=== PATIENT | male | born 1935 | race Two or more races ===

== ENCOUNTER 2017-04-25 20:49 | Inpatient (IN) | payer MEDICARE ==
[~2017-04-25] VITALS: Ht 188 cm; Wt 119.6 kg
[~2017-04-25 20:49] MED LIST: ACET500 PO; ALLO100 PO; ALLOPURINOL; ALLOPURINOL PO; ASPI325; ASPI325 PO; ATEN100; CHOL10002 PO; CLOP75 PO; FURO100EL PO; FURO80 PO; GLUC500 PO; GLUCOSAMINE PO; HCTZ; HYDCHL25 PO; ISOMON30 PO; METF500 PO; METO50 PO; MULVITB&C PO; NITR.4SL SL; OMEG1CAP30 PO; OMEP20ER PO; PANT40 PO; POTA10T PO; SIMV40 PO; VALS80; VALS80 PO; ZANTAC; ZETIA; [UNRECOGNIZED DRUG - OTHER] PO
[2017-04-25 21:03] LABS: BASOPHILS ABSOLUTE AUTO 0.05 K/mm3 (0.00-0.23); BASOPHILS PERCENT AUTO 1 % (0-2); EOSINOPHILS ABSOLUTE AUTO 0.46 K/mm3 (0.00-0.68); EOSINOPHILS PERCENT AUTO 7 % (0-6); Hematocrit 32.7 % (37.0-53.0); Hemoglobin 10.6 g/dL (13.5-17.5); IMMATURE GRAN ABSOLUTE AUTO 0.04 K/mm3 (0.00-0.10); IMMATURE GRAN PERCENT AUTO 1 % (0-1); LYMPHOCYTES ABSOLUTE AUTO 1.84 K/mm3 (0.84-5.20); LYMPHOCYTES PERCENT AUTO 28 % (21-46); MONOCYTES ABSOLUTE AUTO 0.61 K/mm3 (0.16-1.47); MONOCYTES PERCENT AUTO 9 % (4-13); Mean Corpuscular HGB 31.5 pg (26.0-34.0); Mean Corpuscular HGB Conc 32.4 g/dL (31.5-36.5); Mean Corpuscular Volume 97 fL (80-100); Mean Platelet Volume 9.9 fL (9.1-12.4); NEUTROPHILS ABSOLUTE AUTO 3.65 K/mm3 (1.96-9.15); NEUTROPHILS PERCENT AUTO 55 % (41-73); Platelet Count 172 K/mm3 (150-400); RDW Coefficient Variation 13.3 % (11.7-14.2); RDW Standard Deviation 48.1 fL (35.1-46.3); Red Blood Cell Count 3.37 M/mm3 (4.30-5.90); White Blood Cell Count 6.65 K/mm3 (4.00-11.30)
[2017-04-25 21:22] LABS: Albumin, Blood 3.5 g/dL (3.4-5.0); Bilirubin, Total 0.3 mg/dL (0.1-1.0); Bun/Creatinine Ratio 26.8 (12.0-20.0); Creatinine, Blood 1.98 mg/dL (0.60-1.20); Globulin, Blood 3.4 g/dL (2.2-4.0); Potassium, Blood 4.4 mmol/L (3.5-5.5); Total Protein, Blood 6.9 g/dL (6.4-8.2); Troponin I 0.112 ng/mL (0.000-0.040)
[2017-04-25] MEDS ORDERED: CALC.25 PO (21:22)
[2017-04-25] MEDS ORDERED: FURO40 PO (21:23)
[2017-04-25] MEDS ORDERED: SODBIC650 PO (21:25)
[2017-04-25] MEDS ORDERED: Pravachol20 MG PO (21:25)
[2017-04-25] MEDS ORDERED: Co Q-10100 MG PO (21:25)
[2017-04-25] MEDS ORDERED: AMLO5 PO (21:26)
[2017-04-25] MEDS ORDERED: Diovan320 MG PO (21:27)
[2017-04-25] MEDS ORDERED: CLOP75 PO (21:27)
[2017-04-25 23:22] LABS: International Normalized Ratio 1.04; Prothrombin Time Results 10.8 Sec (9.7-11.5)
[2017-04-26] MEDS ORDERED: ALLO100 PO (02:26)
[2017-04-26] MEDS ORDERED: ISOD40ER PO (02:28)
[2017-04-26] MEDS ORDERED: NITR.4SL SL (02:30)
[2017-04-26] MEDS ORDERED: FENO48 PO (02:30)
[2017-04-26] MEDS ORDERED: DOCU100 (02:31)
[2017-04-27 21:22] LABS: Mean Platelet Volume 9.9 fL (9.1-12.4); Platelet Count 173 K/mm3 (150-400)
== END 2017-04-28 16:10 | disposition short-term general hospital (02) | DRG 281 ==
LOC: ER 20:49 → PCU 20:50
PROVIDERS: Emergency Medicine; Family Medicine
PROC: 3E0234Z Introduction of Serum, Toxoid and Vaccine into Muscle, Percutaneous Approach (ICD-10-PCS; principal; 2017-04-26)
DX: I21.4 Non-ST elevation (NSTEMI) myocardial infarction (principal); I50.32 Chronic diastolic (congestive) heart failure; E11.22 Type 2 diabetes mellitus with diabetic chronic kidney disease; N18.4 Chronic kidney disease, stage 4 (severe); I13.0 Hypertensive heart and chronic kidney disease with heart failure and stage 1 through stage 4 chronic kidney disease, or unspecified chronic kidney disease; E66.01 Morbid (severe) obesity due to excess calories; D63.1 Anemia in chronic kidney disease; E78.5 Hyperlipidemia, unspecified; I35.0 Nonrheumatic aortic (valve) stenosis; Z23 Encounter for immunization; G47.33 Obstructive sleep apnea (adult) (pediatric); M10.9 Gout, unspecified; Z66 Do not resuscitate; I25.110 Atherosclerotic heart disease of native coronary artery with unstable angina pectoris; Z68.33 Body mass index [BMI] 33.0-33.9, adult
CPT/HCPCS: 36415; 71046; 80053; 82947; 84484; 85025; 85049; 85610; 85730; 93005; 93010; 94660; 94762; 96374; 96376; 99285; G0378; J1644; J7040

== ENCOUNTER 2017-05-30 14:45 | Inpatient (IN) | payer MEDICARE ==
[~2017-05-30] VITALS: Ht 188 cm; Wt 123.5 kg
[~2017-05-30 14:45] MED LIST changes: +AMLO5 PO; +CALC.25 PO; +Co Q-10100 MG PO; +DOCU100; +Diovan320 MG PO; +FENO48 PO; +FURO40 PO; +ISOD40ER PO; +Pravachol20 MG PO; +SODBIC650 PO
[2017-05-30 15:00] LABS: Calcium, Ionized (POC) 1.34 mmol/L (1.10-1.46); Chloride (POC) 100 mmol/L (98-108); Creatinine (POC) 1.7 mg/dL (0.8-1.3); Glucose (ISTAT POC) 315 mg/dL (70-99); Hemoglobin (POC) 11.2 g/dL (13.5-17.5); Potassium (POC) 3.9 mmol/L (3.5-5.5); Sodium (POC) 134 mmol/L (135-148); Total CO2 (POC) 20 mmol/L (21-32)
[2017-05-30 15:04] LABS: BASOPHILS ABSOLUTE AUTO 0.08 K/mm3 (0.00-0.23); BASOPHILS PERCENT AUTO 1 % (0-2); EOSINOPHILS ABSOLUTE AUTO 1.06 K/mm3 (0.00-0.68); EOSINOPHILS PERCENT AUTO 10 % (0-6); Hematocrit 34.9 % (37.0-53.0); Hemoglobin 10.7 g/dL (13.5-17.5); IMMATURE GRAN PERCENT AUTO 5 % (0-1); LYMPHOCYTES ABSOLUTE AUTO 6.58 K/mm3 (0.84-5.20); LYMPHOCYTES PERCENT AUTO 60 % (21-46); MONOCYTES ABSOLUTE AUTO 0.58 K/mm3 (0.16-1.47); MONOCYTES PERCENT AUTO 5 % (4-13); Mean Corpuscular HGB Conc 30.7 g/dL (31.5-36.5); Mean Corpuscular Volume 101 fL (80-100); Mean Platelet Volume 10.3 fL (9.1-12.4); NEUTROPHILS ABSOLUTE AUTO 2.22 K/mm3 (1.96-9.15); NEUTROPHILS PERCENT AUTO 20 % (41-73); NRBC ABSOLUTE 0.03 K/mm3 (0.00-0.02); NRBC Auto 0.3 /100 WBC (0.0-0.2); Platelet Count 142 K/mm3 (150-400); RDW Coefficient Variation 13.3 % (11.7-14.2); RDW Standard Deviation 49.3 fL (35.1-46.3); Red Blood Cell Count 3.45 M/mm3 (4.30-5.90); White Blood Cell Count 11.02 K/mm3 (4.00-11.30)
[2017-05-30 15:08] LABS: Base Excess Venous -19.1 mmol/L; Bicarbonate Venous 10.3 mmol/L (24.0-30.0); PCO2 Venous 81.8 mmHg (38-42); PO2 Venous 152 mmHg (38-42)
[2017-05-30 15:09] LABS: pH Blood Venous 6.86 (7.34-7.37)
[2017-05-30 15:29] LABS: Albumin, Blood 3.1 g/dL (3.4-5.0); Albumin/Globulin Ratio 0.8 (0.8-1.8); Bilirubin, Total 0.3 mg/dL (0.1-1.0); Bun/Creatinine Ratio 28.1 (12.0-20.0); Calcium, Blood 9.3 mg/dL (8.5-10.1); Creatinine, Blood 1.67 mg/dL (0.60-1.20); Globulin, Blood 3.7 g/dL (2.2-4.0); Magnesium, Blood 2.7 mg/dL (1.6-2.4); Potassium, Blood 3.9 mmol/L (3.5-5.5); Total Protein, Blood 6.8 g/dL (6.4-8.2); Troponin I 0.077 ng/mL (0.000-0.040)
[2017-05-30 15:32] LABS: Thyroid Stimulating Hormone 1.89 uIU/mL (0.360-4.800)
[2017-05-30 15:38] LABS: PCO2 Arterial 32.3 mmHg (35-45); PO2 Arterial 402 mmHg (80-100); pH Blood Arterial 7.18 (7.35-7.45)
[2017-05-30 15:41] LABS: International Normalized Ratio 1.14; Prothrombin Time Results 11.9 Sec (9.7-11.5)
[2017-05-30 15:50] LABS: BASOPHILS PERCENT MAN 0 % (0-2); EOSINOPHILS ABSOLUTE MAN 1.21 K/mm3 (0.00-0.68); EOSINOPHILS PERCENT MAN 11 % (0-6); LYMPHOCYTES % ATYPICAL MANUAL 16 % (0-0); LYMPHOCYTES ABSOLUTE MAN 7.82 K/mm3 (0.84-5.20); LYMPHOCYTES PERCENT MAN 55 % (21-46); MONOCYTES ABSOLUTE MAN 0.33 K/mm3 (0.16-1.47); MONOCYTES PERCENT MAN 3 % (4-13); NEUTROPHILS ABSOLUTE MAN 1.76 K/mm3 (1.96-9.15); SEG NEUTROPHILS PERCENT MAN 16 % (41-73); TOTAL CELLS COUNTED 38
[2017-05-30 17:24] LABS: U Amphetamine Screen Not Detected; U Barbituate Screen Not Detected; U Benzodiazapine Screen Not Detected; U Buprenorphine Screen Not Detected; U Cannabinoids Screen Not Detected; U Cocaine Screen Not Detected; U Methadone Screen Not Detected; U Methamphetamine Screen Not Detected; U Opiates Screen Not Detected; U Oxycodone Screen Not Detected; U Phencyclidine Screen Not Detected; U Propoxyphene Screen Not Detected
[2017-05-30 19:21] LABS: PCO2 Arterial 36.1 mmHg (35-45); PO2 Arterial 214 mmHg (80-100); pH Blood Arterial 7.32 (7.35-7.45)
[2017-05-31 04:50] LABS: BASOPHILS ABSOLUTE AUTO 0.02 K/mm3 (0.00-0.23); BASOPHILS PERCENT AUTO 0 % (0-2); EOSINOPHILS ABSOLUTE AUTO 0.02 K/mm3 (0.00-0.68); EOSINOPHILS PERCENT AUTO 0 % (0-6); Hematocrit 30.1 % (37.0-53.0); Hemoglobin 10.2 g/dL (13.5-17.5); IMMATURE GRAN ABSOLUTE AUTO 0.09 K/mm3 (0.00-0.10); IMMATURE GRAN PERCENT AUTO 1 % (0-1); LYMPHOCYTES ABSOLUTE AUTO 0.62 K/mm3 (0.84-5.20); LYMPHOCYTES PERCENT AUTO 5 % (21-46); MONOCYTES ABSOLUTE AUTO 0.74 K/mm3 (0.16-1.47); MONOCYTES PERCENT AUTO 6 % (4-13); Mean Corpuscular HGB 31.6 pg (26.0-34.0); Mean Corpuscular HGB Conc 33.9 g/dL (31.5-36.5); Mean Platelet Volume 9.9 fL (9.1-12.4); NEUTROPHILS ABSOLUTE AUTO 10.48 K/mm3 (1.96-9.15); NEUTROPHILS PERCENT AUTO 87 % (41-73); Platelet Count 123 K/mm3 (150-400); RDW Coefficient Variation 13.3 % (11.7-14.2); RDW Standard Deviation 45.9 fL (35.1-46.3); Red Blood Cell Count 3.23 M/mm3 (4.30-5.90); White Blood Cell Count 11.97 K/mm3 (4.00-11.30)
[2017-05-31 04:52] LABS: PCO2 Arterial 32.7 mmHg (35-45); PO2 Arterial 77.6 mmHg (80-100); pH Blood Arterial 7.34 (7.35-7.45)
[2017-05-31 04:54] LABS: Mean Corpuscular Volume 93 fL (80-100)
[2017-05-31 05:09] LABS: Albumin, Blood 2.7 g/dL (3.4-5.0); Albumin/Globulin Ratio 0.9 (0.8-1.8); Bilirubin, Total 0.3 mg/dL (0.1-1.0); Bun/Creatinine Ratio 30.8 (12.0-20.0); Calcium, Blood 8.2 mg/dL (8.5-10.1); Creatinine, Blood 1.46 mg/dL (0.60-1.20); Globulin, Blood 3.1 g/dL (2.2-4.0); Potassium, Blood 3.9 mmol/L (3.5-5.5); Total Protein, Blood 5.8 g/dL (6.4-8.2)
[2017-06-01 03:56] LABS: BASOPHILS ABSOLUTE AUTO 0.02 K/mm3 (0.00-0.23); BASOPHILS PERCENT AUTO 0 % (0-2); EOSINOPHILS ABSOLUTE AUTO 0.03 K/mm3 (0.00-0.68); EOSINOPHILS PERCENT AUTO 0 % (0-6); Hematocrit 29.1 % (37.0-53.0); Hemoglobin 9.9 g/dL (13.5-17.5); IMMATURE GRAN ABSOLUTE AUTO 0.07 K/mm3 (0.00-0.10); IMMATURE GRAN PERCENT AUTO 1 % (0-1); LYMPHOCYTES ABSOLUTE AUTO 0.52 K/mm3 (0.84-5.20); LYMPHOCYTES PERCENT AUTO 4 % (21-46); MONOCYTES ABSOLUTE AUTO 0.64 K/mm3 (0.16-1.47); MONOCYTES PERCENT AUTO 5 % (4-13); Mean Corpuscular HGB 31.9 pg (26.0-34.0); Mean Corpuscular Volume 94 fL (80-100); Mean Platelet Volume 9.8 fL (9.1-12.4); NEUTROPHILS ABSOLUTE AUTO 12.77 K/mm3 (1.96-9.15); NEUTROPHILS PERCENT AUTO 91 % (41-73); Platelet Count 108 K/mm3 (150-400); RDW Coefficient Variation 13.9 % (11.7-14.2); RDW Standard Deviation 47.4 fL (35.1-46.3); White Blood Cell Count 14.05 K/mm3 (4.00-11.30)
[2017-06-01 04:11] LABS: Bun/Creatinine Ratio 24.7 (12.0-20.0); Calcium, Blood 8.4 mg/dL (8.5-10.1); Creatinine, Blood 1.46 mg/dL (0.60-1.20); Potassium, Blood 3.8 mmol/L (3.5-5.5)
[2017-06-01 05:09] LABS: PCO2 Arterial 32.4 mmHg (35-45); PO2 Arterial 72.3 mmHg (80-100); pH Blood Arterial 7.38 (7.35-7.45)
[2017-06-02 04:21] LABS: Hematocrit 26.5 % (37.0-53.0); Hemoglobin 8.7 g/dL (13.5-17.5); Mean Corpuscular HGB 31.5 pg (26.0-34.0); Mean Corpuscular HGB Conc 32.8 g/dL (31.5-36.5); Mean Corpuscular Volume 96 fL (80-100); Mean Platelet Volume 9.9 fL (9.1-12.4); Platelet Count 100 K/mm3 (150-400); RDW Coefficient Variation 14.4 % (11.7-14.2); RDW Standard Deviation 50.3 fL (35.1-46.3); Red Blood Cell Count 2.76 M/mm3 (4.30-5.90)
[2017-06-02 04:29] LABS: PCO2 Arterial 34.5 mmHg (35-45); PO2 Arterial 63.8 mmHg (80-100); pH Blood Arterial 7.34 (7.35-7.45)
[2017-06-02 04:43] LABS: Alanine Aminotransfer (ALT/SGP 61 U/L (12-78); Albumin, Blood 2.2 g/dL (3.4-5.0); Albumin/Globulin Ratio 0.7 (0.8-1.8); Alk Phos 54 U/L (50-136); Anion Gap 9 mmol/L (6-16); Aspartate Aminotrans (AST/SGOT 92 U/L (12-37); Bilirubin, Total 0.6 mg/dL (0.1-1.0); Blood Urea Nitrogen 35 mg/dL (8-24); Bun/Creatinine Ratio 25.2 (12.0-20.0); CHOL/HDL RATIO 5.4; CO2, Blood 19 mmol/L (21-32); Calcium, Blood 8.7 mg/dL (8.5-10.1); Chloride, Blood 115 mmol/L (98-108); Cholesterol 107 mg/dL (50-200); Creatinine, Blood 1.39 mg/dL (0.60-1.20); Globulin, Blood 3.3 g/dL (2.2-4.0); Glomerular Filtration Rate 52 (60-); Glucose, Blood 105 mg/dL (70-99); HDL Cholesterol 20 mg/dL (>39); LDL/HDL RATIO Unable to Calculate; Low Density Lipoprotein Chol Unable to Calculate mg/dL (0-110); Magnesium, Blood 2.1 mg/dL (1.6-2.4); Phosphorus, Blood 2.5 mg/dL (2.5-4.9); Potassium, Blood 3.9 mmol/L (3.5-5.5); Sodium, Blood 143 mmol/L (136-145); Total Protein, Blood 5.5 g/dL (6.4-8.2); Triglycerides 525 mg/dL (30-160); Very Low Density Lipoprot Chol Unable to Calculate mg/dL (6-32)
== END 2017-06-02 23:14 ==
LOC: ER 14:45 → ICUW 15:55
PROVIDERS: Emergency Medicine; Internal Medicine; Internal Medicine Pulmonary Disease
PROC: 0BH17EZ Insertion of Endotracheal Airway into Trachea, Via Natural or Artificial Opening (ICD-10-PCS; principal; 2017-05-30)
PROC: 5A1945Z Respiratory Ventilation, 24-96 Consecutive Hours (ICD-10-PCS; 2017-05-30)
PROC: 06HY33Z Insertion of Infusion Device into Lower Vein, Percutaneous Approach (ICD-10-PCS; 2017-05-30)
DX: I49.01 Ventricular fibrillation (principal); J96.01 Acute respiratory failure with hypoxia; I21.4 Non-ST elevation (NSTEMI) myocardial infarction; G93.1 Anoxic brain damage, not elsewhere classified; J18.9 Pneumonia, unspecified organism; Z51.5 Encounter for palliative care; I13.0 Hypertensive heart and chronic kidney disease with heart failure and stage 1 through stage 4 chronic kidney disease, or unspecified chronic kidney disease; E87.2 Acidosis; I50.9 Heart failure, unspecified; E11.22 Type 2 diabetes mellitus with diabetic chronic kidney disease; I47.2 Ventricular tachycardia; I46.2 Cardiac arrest due to underlying cardiac condition; I25.10 Atherosclerotic heart disease of native coronary artery without angina pectoris; I25.2 Old myocardial infarction; M10.9 Gout, unspecified; N18.3 Chronic kidney disease, stage 3 (moderate); G47.33 Obstructive sleep apnea (adult) (pediatric); E66.9 Obesity, unspecified; D63.8 Anemia in other chronic diseases classified elsewhere; E78.5 Hyperlipidemia, unspecified; K21.9 Gastro-esophageal reflux disease without esophagitis; Z66 Do not resuscitate; Z86.718 Personal history of other venous thrombosis and embolism; Z95.5 Presence of coronary angioplasty implant and graft; Z87.891 Personal history of nicotine dependence; Z95.2 Presence of prosthetic heart valve; Z88.8 Allergy status to other drugs, medicaments and biological substances; Z79.02 Long term (current) use of antithrombotics/antiplatelets; Z79.82 Long term (current) use of aspirin; Z79.899 Other long term (current) drug therapy; Z68.32 Body mass index [BMI] 32.0-32.9, adult
CPT/HCPCS: 31500; 31720; 36415; 36556; 36600; 51702; 70450; 71045; 80047; 80048; 80053; 80061; 82330; 82803; 82947; 83036; 83605; 83690; 83735; 83880; 84100; 84443; 84484; 85014; 85025; 85027; 85610; 87070; 87205; 93005; 93010; 93306; 94003; 95819; 96374; 99291; 99292; C9113; J0282; J0360; J1644; J2060; J2543; J3010; J7030; J7050; J7120